=== PATIENT | female | born 1975 | race Two or more races ===

== ENCOUNTER 2022-07-06 22:23 | Emergency (ER) | payer MEDICAID ==
[~2022-07-06] VITALS: Ht 167.6 cm; Wt 99.0 kg
[2022-07-07] MEDS ORDERED: IBUPROFEN 400MG TABLET PO ONE (00:30)
[2022-07-07] MEDS ORDERED: ACETAMINOPHEN 325MG TABLET PO ONE (00:30)
[2022-07-07] MEDS ORDERED: METH-653 MT (02:49)
[2022-07-07] MEDS ORDERED: LIDO1ADH23 TP (02:49)
[2022-07-07] MEDS ORDERED: TOPUD PO (02:49)
[2022-07-07] MEDS ORDERED: IBUP-2028 MT (02:49)
[2022-07-07 03:05] VITALS: BP 120/68
== END 2022-07-07 03:05 | disposition home or self-care (01) ==
LOC: ER 22:23
DX: M25.521 Pain in right elbow (principal); M25.562 Pain in left knee; E11.9 Type 2 diabetes mellitus without complications; I10 Essential (primary) hypertension; W01.0XXA Fall on same level from slipping, tripping and stumbling without subsequent striking against object, initial encounter; Y93.89 Activity, other specified; Y92.9 Unspecified place or not applicable; Z90.710 Acquired absence of both cervix and uterus
CPT/HCPCS: 73060; 73080; 73562; 73590; 81025; 99284